=== PATIENT | male | born 1990 | race Caucasian/White ===

== ENCOUNTER 2019-01-26 10:54 | Emergency (ER) | payer SELFPAY ==
[~2019-01-26] VITALS: Ht 185.4 cm; Wt 91.0 kg
--- NOTE | 2019-01-26 11:06 | NUR ---
PATIENT BIB OFFICERS FROM [place] FOR ABSCESS TO LT ARM X 1 WEEK. ERYTHEMA/SWELLING NOTED. PATIENT REPORTS HAVING INGROWN HAIR, DENIES INJURY. TAKING ABX CURRENTLY, OFFICERS AT BEDSIDE, MD AT BEDSIDE. CALL LIGHT WITHIN REACH. AWAITING ORDERS.
[2019-01-26] MEDS ORDERED: BUSP10TA PO (11:10)
[2019-01-26] MEDS ORDERED: ABX (11:10)
[2019-01-26 11:47] LABS: BASOPHILS # (AUTO) 0.03 x10^3/uL (0-0.1); BASOPHILS % (AUTO) 0 % (0-1); EOSINOPHILS # (AUTO) 0.23 x10^3/uL (0-0.4); EOSINOPHILS % (AUTO) 3 % (1-7); LYMPHOCYTES % (AUTO) 16 % (22-44); MD NO; MEAN CORPUSCULAR HEMOGLOBIN 30.6 pg (27.5-34.5); MEAN CORPUSCULAR HGB CONC 33.5 g/dL (33.2-36.2); MEAN CORPUSCULAR VOLUME 91.3 fL (81-97); MEAN PLATELET VOLUME 8.4 fL (7.4-10.4); MONOCYTES # (AUTO) 0.83 x10^3/uL (0.2-0.8); MONOCYTES % (AUTO) 9 % (2-9); NEUTROPHILS # (AUTO) 6.29 x10^3/uL (1.8-6.8); NEUTROPHILS % (AUTO) 72 % (42-75); PLATELET COUNT 297 x10^3/uL (130-400); RED BLOOD COUNT 4.46 x10^6/uL (4.38-5.82); RED CELL DISTRIBUTION WIDTH 13.8 % (9.4-14.8)
[2019-01-26 12:00] LABS: ANION GAP 4 mmol/L (5-15); CALCIUM 9.1 mg/dL (8.5-10.1); CHLORIDE 106 mmol/L (98-107); CREATININE 0.87 mg/dL (0.7-1.3)
--- NOTE | 2019-01-26 12:12 | NUR ---
BREAK RN FOR PRIMARY RN [facility]. PT TO CT AT THIS TIME
--- NOTE | 2019-01-26 12:24 | NUR ---
BEDSIDE REPORT AND CARE BACK TO [facility]. PT REMAINS IN CT.
[2019-01-26] MEDS ORDERED: OMNIPAQUE 350 MG/ML, 100ML BOTTLE ONE (12:56)
[2019-01-26] MEDS ORDERED: LIDOCAINE-MPF 1%, 5ML ONE (13:22)
--- NOTE | 2019-01-26 13:36 | NUR ---
AT BEDSIDE FOR I&D, VICENTA.
[2019-01-26] MEDS ORDERED: SULFAMETH./TRIMETHOPRIM DS 800MG/160MG TABLET PO ONE (14:00)
[2019-01-26] MEDS ORDERED: SULFAMETH./TRIMETHOPRIM DS 800MG/160MG TABLET ONE ×2 (14:10→14:14)
--- NOTE | 2019-01-26 14:25 | NUR ---
Patient/Caregiver given discharge instructions and they have confirmed that they understand the instructions. Patient ambulatory with steady gait with officers out ambulance bay.
[2019-01-26 14:26] VITALS: BP 129/73
== END 2019-01-26 14:29 | disposition home or self-care (01) ==
LOC: ED 14:23
DX: L03.114 Cellulitis of left upper limb (principal); L02.414 Cutaneous abscess of left upper limb
CPT/HCPCS: 10060; 36415; 73201; 80048; 84145; 85025; 87040; 87070; 87077; 87147; 87205; 99284; Q9967; 87186